=== PATIENT | male | born 1995 | race Caucasian/White ===

== ENCOUNTER → 2018-02-07 | Outpatient (CLI) | payer OTHER ==
[2018-02-07 10:08] LABS: microscopic required? NO
[2018-02-07 10:46] LABS: BASOPHIL % 0.5 % (0-2); PLATELET COUNT 317 x10^3mcL (130-400); RED CELL DISTRIBUTION WIDTH 13.1 % (11.5-14.5)
[2018-02-07 11:00] LABS: T3 TOTAL 1.02 ng/mL
[2018-02-07 11:08] LABS: FREE T4 0.85 ng/dL (0.76-1.46); T4(THYROXINE) 5.8 ug/dL (4.7-13.3)
[2018-02-07 11:13] LABS: UA SPECIFIC GRAVITY 1.025 (1.005-1.035); urine erythrocyte NEGATIVE (NEGATIVE)
[2018-02-07 11:16] LABS: ALKALINE PHOSPHATASE 60 U/L (46-116); ALT/SGPT 30 U/L (16-63); AST/SGOT 26 U/L (15-37); BILIRUBIN TOTAL 0.3 mg/dL (0.20-1.00); CARBON DIOXIDE 24.5 mmol/L (21-32); CHLORIDE SERUM 103 mmol/L (98-107); MAGNESIUM 2.1 mg/dL (1.8-2.4); POTASSIUM SERUM 4.1 mmol/L (3.5-5.1); SODIUM SERUM 138 mmol/L (136-145); TOTAL PROTEIN, SERUM 7.7 g/dL (6.4-8.2)
[2018-02-07 11:45] LABS: CALCIUM 9.2 mg/dL (8.5-10.1); CREATININE SERUM 1.2 mg/dL (0.7-1.3); GFR1 > 60 mL/min; GLUCOSE SERUM 91 mg/dL (74-106)
[2018-02-07 12:04] LABS: HDL CHOLESTEROL 43 mg/dL (40-60); TRIGLYCERIDES 101 mg/dL (<150)
[2018-02-07 12:05] LABS: CHOLESTEROL 132 mg/dL (<200); CHOLESTEROL/HDL RATIO 3.1
[2018-02-08 09:11] LABS: PROLACTIN 12.3 ng/mL (4.0-15.2)
== END | disposition home or self-care (01) ==
LOC: LB 09:32
DX: F41.8 Other specified anxiety disorders (principal); R61 Generalized hyperhidrosis; R23.2 Flushing; R03.0 Elevated blood-pressure reading, without diagnosis of hypertension
CPT/HCPCS: 82670; 84402; 84403; 84439

== ENCOUNTER → 2018-10-06 | Outpatient (CLI) | payer OTHER ==
[2018-10-06 15:32] LABS: BASOPHIL % 0.6 % (0-2); PLATELET COUNT 289 x10^3mcL (130-400); RED CELL DISTRIBUTION WIDTH 12.8 % (11.5-14.5)
[2018-10-06 16:05] LABS: ALBUMIN 4.2 g/dL (3.4-5.0); ALKALINE PHOSPHATASE 48 U/L (46-116); ALT/SGPT 31 U/L (16-63); AST/SGOT 35 U/L (15-37); BILIRUBIN DIRECT 0.13 mg/dL (0.0-0.2); CALCIUM 8.8 mg/dL (8.5-10.1); CARBON DIOXIDE 27.8 mmol/L (21-32); CHLORIDE SERUM 103 mmol/L (98-107); CHOLESTEROL 117 mg/dL (<200); CHOLESTEROL/HDL RATIO 2.3; CREATININE SERUM 1.2 mg/dL (0.7-1.3); GFR1 > 60 mL/min; GLUCOSE SERUM 86 mg/dL (74-106); HDL CHOLESTEROL 51 mg/dL (40-60); SODIUM SERUM 139 mmol/L (136-145); TOTAL PROTEIN, SERUM 8.2 g/dL (6.4-8.2); TRIGLYCERIDES 51 mg/dL (<150)
== END | disposition home or self-care (01) ==
LOC: LB 15:06
PROVIDERS: Internal Medicine
DX: Z00.00 Encounter for general adult medical examination without abnormal findings (principal)

== ENCOUNTER → 2018-10-12 | Outpatient (CLI) | payer OTHER | END | disposition home or self-care (01) | LOC: LB 16:29 | DX: Z00.00 Encounter for general adult medical examination without abnormal findings (principal) ==